=== PATIENT | female | born 1970 | race Hispanic/Latino ===

== ENCOUNTER 2017-10-08 07:52 | Outpatient (CLI) | payer OTHER ==
--- NOTE | 2017-10-08 08:09 | XRay Report ---
XRAY RIGHT SHOULDER THREE VIEWS: 10/08/17 07:52:00 CLINICAL: Right shoulder pain. FINDINGS: Normal glenohumeral alignment and normal glenohumeral joint. Mild acromioclavicular joint arthritis. Mild irregularity at the greater tuberosity of the humerus. No fracture or dislocation. No bone lesion. Normal soft tissues. IMPRESSION: Mild degenerative change in humerus and mild acromioclavicular joint arthritis.
== END 2017-10-08 07:53 | disposition home or self-care (01) ==
LOC: SPVIMAG 07:52
PROVIDERS: ATTEND Orthopaedic Surgery
DX: M19.011 Primary osteoarthritis, right shoulder (principal)

== ENCOUNTER 2017-10-15 13:33 | Outpatient (CLI) | payer OTHER ==
--- NOTE | 2017-10-16 15:01 | Mammography Report ---
BILATERAL DIGITAL SCREENING MAMMOGRAM with CAD: 10/15/17 13:33:00 CLINICAL: Routine screening. COMPARISON: 04/05/16 FINDINGS: There are bilateral scattered areas of fibroglandular density.No mass, architectural distortion or suspicious calcifications. IMPRESSION: No mammographic evidence of malignancy. BI-RADS CATEGORY: 1 -- Negative RECOMMENDATION: Routine mammographic screening in one year. COMMENT: Patient follow-up letters are generated by our [employer] application.
== END 2017-10-15 13:34 | disposition home or self-care (01) ==
LOC: SPVWC 13:33
PROVIDERS: ATTEND Family Medicine
DX: Z12.31 Encounter for screening mammogram for malignant neoplasm of breast (principal)
CPT/HCPCS: 77067

== ENCOUNTER 2018-01-24 14:12 | Outpatient (CLI) | payer OTHER ==
--- NOTE | 2018-01-24 14:56 | XRay Report ---
CHEST TWO VIEWS: 01/24/18 14:12:00 CLINICAL: Chest pain. COMPARISON: None FINDINGS: Normal heart and pulmonary vasculature. The lungs are normally expanded and clear.Degenerative change in the thoracic spine with anterior spondylosis at multiple levels. No fracture. Mild scoliosis. IMPRESSION: No acute cardiopulmonary process.
== END 2018-01-24 14:13 | disposition home or self-care (01) ==
LOC: SPVIMAG 14:12
PROVIDERS: ATTEND Family Medicine
DX: M47.894 Other spondylosis, thoracic region (principal); R07.9 Chest pain, unspecified; M41.34 Thoracogenic scoliosis, thoracic region; Z90.49 Acquired absence of other specified parts of digestive tract
CPT/HCPCS: 71046

== ENCOUNTER 2018-09-17 14:39 | Outpatient (CLI) | payer OTHER ==
--- NOTE | 2018-09-17 15:55 | XRay Report ---
XRAY RIGHT FOOT THREE VIEWS: 09/17/18 14:39:00 CLINICAL: Right foot pain. FINDINGS: Lateral soft tissue swelling and an incomplete oblique fracture of the proximal fifth metatarsal. The lateral cortex is interrupted but the medial cortex is intact. No periosteal new bone formation. No other fractures. No foreign body. The joint spaces are normal. A moderate size plantar calcaneal spur and a small Achilles calcaneal spur. IMPRESSION: 1. Incomplete closed acute or subacute fracture of the proximal fifth metatarsal. The appearance is typical of a stress fracture. 2. Plantar and Achilles enthesopathy.
== END 2018-09-17 14:40 | disposition home or self-care (01) ==
LOC: SPVIMAG 14:39
PROVIDERS: ATTEND Family Medicine
DX: S92.351A Displaced fracture of fifth metatarsal bone, right foot, initial encounter for closed fracture (principal); X58.XXXA Exposure to other specified factors, initial encounter; Y93.89 Activity, other specified; Y92.89 Other specified places as the place of occurrence of the external cause; Y99.8 Other external cause status; Z90.49 Acquired absence of other specified parts of digestive tract